=== PATIENT | female | born 1960 | race Caucasian/White ===

== ENCOUNTER 2023-03-09 09:46 | Emergency (ER) | payer BC ==
[~2023-03-09] VITALS: Ht 162.6 cm; Wt 90.0 kg
[2023-03-09 09:51] VITALS: BP 193/118
[2023-03-09] MEDS ORDERED: dexamethasone sod phosphate 10mg/ml inj PO STA (13:39)
[2023-03-09] MEDS ORDERED: LIDOcaine Viscous 15ml cup MM ONE (13:40)
[2023-03-09] MEDS ORDERED: DEXA6TAB PO (14:50)
[2023-03-09 15:28] VITALS: PULSE 82; RESP 16; TEMP 98.8; O2SAT 97
== END 2023-03-09 15:30 | disposition home or self-care (01) ==
LOC: ER 09:49
DX: K14.8 Other diseases of tongue (principal); Z88.2 Allergy status to sulfonamides; Z79.899 Other long term (current) drug therapy
CPT/HCPCS: 99283; J1100

== ENCOUNTER 2023-03-27 16:42 | Emergency (ER) | payer BC ==
[~2023-03-27] VITALS: Ht 165.1 cm; Wt 95.0 kg
[~2023-03-27 16:42] MED LIST: DEXA6TAB PO
[2023-03-27 16:46] VITALS: TEMP 98
[2023-03-27 17:19] LABS: BASOPHILS # (AUTO) 0.1 X10'3 (0-0.2); BASOPHILS % (AUTO) 0.7 % (0-1); EOSINOPHILS # (AUTO) 0.1 X10'3 (0-0.9); EOSINOPHILS % (AUTO) 0.6 % (0-6); HEMATOCRIT 44.1 % (35.0-45.0); HEMOGLOBIN 14.5 g/dl (12.0-16.0); LYMPHOCYTES # (AUTO) 2.7 X10'3 (1.1-4.8); LYMPHOCYTES % (AUTO) 24.9 % (21-51); MEAN CORPUSCULAR HEMOGLOBIN 27.3 PG (27.0-31.0); MEAN CORPUSCULAR HGB CONC 32.8 g/dL (33.0-36.5); MEAN CORPUSCULAR VOLUME 83.3 FL (78-98); MONOCYTES # (AUTO) 0.8 X10'3 (0-0.9); MONOCYTES % (AUTO) 7.2 % (2-12); NEUTROPHILS # (AUTO) 7.2 X10'3 (1.8-7.7); NEUTROPHILS % (AUTO) 66.6 % (42-75); PLATELET COUNT 437 X10'3 (140-440); RED CELL DISTRIBUTION WIDTH 16.5 % (11.5-14.5); WHITE BLOOD COUNT 10.8 X10'3 (4.5-11.0)
[2023-03-27 17:35] LABS: ALANINE AMINOTRANSFERASE 44 U/L (12-78); ALBUMIN 3.6 G/DL (3.4-5.0); ALBUMIN/GLOBULIN RATIO 0.9 (1.1-1.5); ALKALINE PHOSPHATASE 171 IU/L (46-116); AMYLASE 65 U/L (25-115); ANION GAP 11 (8-16); ASPARTATE AMINO TRANSFERASE 23 U/L (10-37); BILIRUBIN,TOTAL 0.3 MG/DL (0.1-1.0); BLOOD UREA NITROGEN 13 MG/DL (7-18); CALCIUM 9.5 MG/DL (8.5-10.1); CHLORIDE 106 MMOL/L (99-107); GLUCOSE 116 MG/DL (70-104); LIPASE 134 U/L (73-393); POTASSIUM 3.5 MMOL/L (3.5-5.1); SODIUM 140 MMOL/L (135-145); TOTAL CARBON DIOXIDE 22.6 MMOL/L (24-32); TOTAL PROTEIN 7.7 G/DL (6.4-8.2); eCRCL 54 ML/MIN; eGFR 57 ML/MIN
[2023-03-27 20:46] LABS: BASOPHILS # (AUTO) 0.1 X10'3 (0-0.2); BASOPHILS % (AUTO) 0.7 % (0-1); EOSINOPHILS % (AUTO) 0.2 % (0-6); HEMATOCRIT 43.4 % (35.0-45.0); LYMPHOCYTES # (AUTO) 1.8 X10'3 (1.1-4.8); LYMPHOCYTES % (AUTO) 17.5 % (21-51); MEAN CORPUSCULAR HGB CONC 32.3 g/dL (33.0-36.5); MEAN CORPUSCULAR VOLUME 83.6 FL (78-98); MEAN PLATELET VOLUME 7.7 FL (7.4-10.4); MONOCYTES # (AUTO) 0.7 X10'3 (0-0.9); MONOCYTES % (AUTO) 6.8 % (2-12); NEUTROPHILS # (AUTO) 7.6 X10'3 (1.8-7.7); NEUTROPHILS % (AUTO) 74.8 % (42-75); PLATELET COUNT 378 X10'3 (140-440); RED BLOOD COUNT 5.19 X10'6 (4.20-5.60); RED CELL DISTRIBUTION WIDTH 16.3 % (11.5-14.5); WHITE BLOOD COUNT 10.1 X10'3 (4.5-11.0)
[2023-03-27 21:06] LABS: PRO BRAIN NATRIURETIC PEPTIDE 106 PG/ML (0-125)
[2023-03-27] MEDS ORDERED: normal saline 1000ml 1,000 ML IV ONE (21:20)
[2023-03-27 21:49] LABS: BILIRUBIN,URINE NEGATIVE (Neg); CLARITY,URINE SLIGHTLY CLOUDY (Clear); COLOR,URINE YELLOW (Yellow); GLUCOSE, URINE NEGATIVE (Neg); KETONES,URINE NEGATIVE (Neg); LEUKOCYTE ESTERASE ,URINE NEGATIVE (Neg); NITRITES, URINE NEGATIVE (Neg); OCCULT BLOOD,URINE SMALL (Neg); PROTEIN,URINE NEGATIVE (Neg); UROBILINOGEN,URINE 0.2 E.U/dL (0.2-1.0)
[2023-03-27 21:52] LABS: UA COLLECTION TYPE CLN CATCH MIDSTREAM
[2023-03-27 21:55] LABS: BACTERIA,URINE 2+ /HPF (Neg); WBC,URINE 0-4 /HPF (0-4)
[2023-03-27] MEDS ORDERED: morphine 4 MG/ML inj SYRINge IV ONE (21:55)
[2023-03-27] MEDS ORDERED: ondansetron/PF 4mg/2ml inj IV ONE (21:55)
[2023-03-27 21:56] LABS: MUCUS STRANDS FEW /LPF (Neg); SQUAMOUS EPITHELIAL CELL,UR MODERATE /LPF (FEW)
[2023-03-27 22:38] VITALS: BP 151/92; PULSE 99; RESP 16; O2SAT 95
== END 2023-03-27 22:40 | disposition home or self-care (01) ==
LOC: ER 16:43
DX: R10.84 Generalized abdominal pain (principal); R41.0 Disorientation, unspecified; Z88.2 Allergy status to sulfonamides; Z79.899 Other long term (current) drug therapy
CPT/HCPCS: 36415; 71045; 80053; 81001; 82150; 83690; 83880; 84484; 85025; 93005; 96361; 96374; 96375; 99285; J2270; J2405; J7030